=== PATIENT | female | born 1970 | race Hispanic/Latino ===

== ENCOUNTER 2017-07-22 18:45 | Emergency (ER) | payer BC ==
[2017-07-22 18:45] VITALS: BMI 33.0
[2017-07-22] MEDS ORDERED: Sodium Chloride 0.9% 1,000 ML IV SCH (19:15)
--- NOTE | 2017-07-22 19:47 | CT ---
EXAM: CT Cervical Spine Without Intravenous Contrast EXAM DATE/TIME: 07/22/2017 7:04 PM CLINICAL HISTORY: 46 years old, female; Signs and symptoms; Other: Rt facial numbness; Prior surgery; Surgery date: Post-operative (0-2 days); Surgery type: S/P c/spine pain relief today; Patient HX: Neck pain; Additional info: Right facial numbness TECHNIQUE: Axial computed tomography images of the cervical spine without intravenous contrast. All CT scans at this facility use one or more dose reduction techniques, viz.: automated exposure control; ma/kV adjustment per patient size (including targeted exams where dose is matched to indication; i.e. head); or iterative reconstruction technique. Coronal and sagittal reformatted images were created and reviewed. COMPARISON: No relevant prior studies available. FINDINGS: VERTEBRAE: No acute cervical spine fractures visualized. No significant vertebral subluxation seen on the sagittal reformatted images. No evidence of acute facet dislocation. DISCS/SPINAL CANAL/NEURAL FORAMINA: Mild multilevel degenerative disc disease, greatest at the C5-6 and C6-7 levels. Mild, multilevel facet joint degenerative changes. SOFT TISSUES: Small foci of air in the posterior spinal soft tissues, at the C2 through C4 levels on the right, located in the posterior paraspinal musculature. No focal soft tissue fluid collection or hematoma seen. LUNG APICES: No pneumothorax seen. IMPRESSION: - No acute fractures or other acute bony abnormality visualized. - Small foci of air in the posterior paraspinal musculature, at the C2 through C4 levels on the right, presumably iatrogenic. No focal soft tissue fluid collection or hematoma seen. - See above for remaining findings.
[2017-07-22 20:01] LABS: BASO % 0.6 % (0.0-2.0); EOS % 0.2 % (0.0-4.0); HEMOGLOBIN 12.7 g/dL (12.0-16.0); LYMPH # 0.8 K/uL (1.0-4.3); MEAN CELL VOLUME 91.5 fl (81.0-99.0); MEAN CORPUSCULAR HEMOGLOBIN 30.4 pg (27.0-31.0); MEAN CORPUSCULAR HGB CONC 33.2 g/dL (33.0-37.0); MEAN PLATELET VOLUME 9.6 fl (7.2-11.7); MONO # 0.8 K/uL (0.0-0.8); MONO % 10.4 % (0.0-10.0); NEUT # 6.4 K/uL (1.8-7.0); NEUT % 78.8 % (50.0-75.0); RBC 4.19 Mil/uL (3.80-5.20); RED CELL DISTRIBUTION WIDTH 13.6 % (11.5-14.5); WHITE BLOOD COUNT 8.1 K/uL (4.8-10.8)
[2017-07-22 20:11] LABS: ALB/GLOB RATIO 1.1 (1.0-2.1); ALBUMIN 4.2 g/dL (3.5-5.0); ALT/SGPT 32 U/L (9-52); AST/SGOT 20 U/L (14-36); BLOOD UREA NITROGEN 14 mg/dl (7-17); CALCIUM 9.7 mg/dL (8.4-10.2); GFR AFRICAN-AMERICAN > 60; GFR NON-AFRICAN AMERICAN > 60; HDL CHOLESTEROL 69 MG/DL (30-70)
[2017-07-22 20:22] LABS: LDL CHOLESTEROL 175 mg/dL (0-129)
[2017-07-22 20:24] LABS: INR 1.1 (0.9-1.2); PARTIAL THROMBOPLASTIN TIME 31.5 Seconds (25.6-37.1); PROTHROMBIN TIME 12.1 Seconds (9.8-13.1)
--- NOTE | 2017-07-22 23:05 | ED PDOC ---
HPI: Neurologic - General Time Seen by Provider: 07/22/17 19:03 Chief Complaint (Nursing): Weakness/Neurological Deficit Chief Complaint (Provider): LEFT facial numbness - History of Present Illness Allergies/Adverse Reactions: Allergies No Known Allergies Allergy (Verified 08/30/14 07:03) Home Medications: Ambulatory Orders Cyclobenzaprine [Cyclobenzaprine HCl] 10 mg PO TID PRN #15 tab 08/30/14 Naproxen [Naprosyn Tab] 500 mg PO BID PRN #20 tab 08/30/14 Cyclobenzaprine HCl [Flexeril] 10 mg PO Q8 #15 tab 12/27/14 Naproxen [Naprosyn] 500 mg PO BID #20 tab 12/27/14 Past Medical History Reviewed: Historical Data, Nursing Documentation, Vital Signs Vital Signs: Last Vital Signs Temp 98.8 F 07/22/17 18:54 Pulse 85 07/22/17 18:54 Resp 16 07/22/17 18:54 BP 155/82 H 07/22/17 18:54 Pulse Ox 99 07/22/17 18:54 - Medical History PMH: Denies: Chronic Kidney Disease Other PMH: neck pain - Family History Family History: States: Hypertension - Social History Current smoker - smoking cessation education provided: No - Home Medications Home Medications: Ambulatory Orders Medication Instructions Recorded Cyclobenzaprine [Cyclobenzaprine 10 mg PO TID PRN #15 tab 08/30/14 HCl] Naproxen [Naprosyn Tab] 500 mg PO BID PRN #20 tab 08/30/14 Cyclobenzaprine HCl [Flexeril] 10 mg PO Q8 #15 tab 12/27/14 Naproxen [Naprosyn] 500 mg PO BID #20 tab 12/27/14 - Allergies Allergies/Adverse Reactions: Allergies Allergy/AdvReac Type Severity Reaction Status Date / Time No Known Allergies Allergy Verified 08/30/14 07:03 Review of Systems ROS Statement: Except As Marked, All Systems Reviewed And Found Negative Physical Exam - Reviewed Nursing Documentation Reviewed: Yes Vital Signs Reviewed: Yes - Physical Exam Appears: Positive for: Non-toxic, No Acute Distress Head Exam: Positive for: ATRAUMATIC, NORMOCEPHALIC Skin: Positive for: Warm, Dry Eye Exam: Positive for: EOMI ENT: Negative for: Pharyngeal Erythema, Tonsillar Exudate Neck: Positive for: Painless ROM, Supple Cardiovascular/Chest: Positive for: Regular Rate, Rhythm. Negative for: Murmur Respiratory: Positive for: Normal Breath Sounds. Negative for: Wheezing Gastrointestinal/Abdominal: Positive for: Soft. Negative for: Tenderness Back: Positive for: Normal Inspection Extremity: Positive for: Normal ROM. Negative for: Deformity Neurologic/Psych: Positive for: Alert, Oriented, Motor/Sensory Deficits (LEFT facial mild numbness (subjective)), Facial Droop (subtle LEFT) - Laboratory Results Result Diagrams: 07/22/17 19:56 07/22/17 19:56 - ECG O2 Sat by Pulse Oximetry: 99 Medical Decision Making Medical Decision Making: Accession No. : [id number] Patient Name / ID : JANKI FERNANDEZ / [id number] Exam Date : 07/22/2017 19:10:48 ( Approved ) Study Comment : Sex / Age : F / 46Y Creator : Bernadette Hoff MD Dictator : Office Agent : Barrel Finisher : Bernadette Hoff MD Approver2 : Report Date : 07/22/2017 19:46:00 My Comment : [facility] Division of Radiology [address] [place] [address] Tel. no. Patient Name: REBECCA SHEARER Pt. Address: [address] [place] [address] Rec #: [id number] [place] [address]: Justice SMITH, Tequila Garcia Pt CELL Order Location: [facility] : 1970 Female Age: 46 Order #: [id number] Reason for exam: RIGHT facial numbness CT Scan CERVICAL SPINE W/O CONTRAST Exam Date: 07/22/17 This imaging exam was performed at [facility] EXAM: CT Cervical Spine Without Intravenous Contrast EXAM DATE/TIME: 07/22/2017 7:04 PM CLINICAL HISTORY: 46 years old, female; Signs and symptoms; Other: Rt facial numbness; Prior surgery; Surgery date: Post-operative (0-2 days); Surgery type: S/P c/spine pain relief today; Patient HX: Neck pain; Additional info: Right facial numbness TECHNIQUE: Axial computed tomography images of the cervical spine without intravenous contrast. All CT scans at this facility use one or more dose reduction techniques, viz.: automated exposure control; ma/kV adjustment per patient size (including targeted exams where dose is matched to indication; i.e. head); or iterative reconstruction technique. Coronal and sagittal reformatted images were created and reviewed. COMPARISON: No relevant prior studies available. FINDINGS: VERTEBRAE: No acute cervical spine fractures visualized. No significant vertebral subluxation seen on the sagittal reformatted images. No evidence of acute facet dislocation. DISCS/SPINAL CANAL/NEURAL FORAMINA: Mild multilevel degenerative disc disease, greatest at the C5-6 and C6-7 levels. Mild, multilevel facet joint degenerative changes. SOFT TISSUES: Small foci of air in the posterior spinal soft tissues, at the C2 through C4 levels on the right, located in the posterior paraspinal musculature. No focal soft tissue fluid collection or hematoma seen. LUNG APICES: No pneumothorax seen. IMPRESSION: - No acute fractures or other acute bony abnormality visualized. - Small foci of air in the posterior paraspinal musculature, at the C2 through C4 levels on the right, presumably iatrogenic. No focal soft tissue fluid collection or hematoma seen. - See above for remaining findings. Dictated By: Bernadette Hoff MD Dictated Date/Time: 07/22/171945 Signed By: Bernadette Hoff MD Date Signed: 1943 Transcribed By: RUBY Transcribe Date/Time : 07/22/171945 [id number] EXAM: CT Head Without Intravenous Contrast EXAM DATE/TIME: 07/22/2017 7:03 PM CLINICAL HISTORY: 46 years old, female; Signs and symptoms; Other: Numbness rt side of face; Additional info: Code stroke TECHNIQUE: Axial computed tomography images of the head/brain without intravenous contrast. All CT scans at this facility use one or more dose reduction techniques, viz.: automated exposure control; ma/kV adjustment per patient size (including targeted exams where dose is matched to indication; i.e. head); or iterative reconstruction technique. Coronal and sagittal reformatted images were created and reviewed. COMPARISON: No relevant prior studies available. FINDINGS: BRAIN: Small foci of hyperdensity in the right basal ganglia, with an appearance most suggestive of asymmetric calcification. No other significant abnormality identified. No acute hemorrhage seen within the brain. No acute extra-axial fluid collections visualized. No evidence of significant mass effect within the brain. Normal arce-white matter differentiation. No CT findings to suggest an acute, large territorial infarct, however, small or early acute infarcts may not be visible on CT. VENTRICLES: No evidence of significant hydrocephalus. BONES/JOINTS: No acute fractures or other acute bony abnormality noted. SOFT TISSUES: No acute abnormality of the visualized soft tissues is seen. SINUSES: Visualized paranasal sinuses appear clear. MASTOID AIR CELLS: Mastoid air cells appear clear. IMPRESSION: - No acute findings seen within the brain. - See above for remaining findings Thank you for allowing us to participate in the care of your patient. Dictated and Authenticated by: Bernadette Hoff MD 07/22/2017 7:28 PM Eastern Time ([place] & [place]) FRANCI Mora pt's pain management who reports that pt has h/o neuro symptoms following similar procedure. Will f/u after discharge. 8p On reevl pt impoved. FRANCI pt findings and plan of care. Pt requested CT results. Copies given directly to patient. Disposition - Clinical Impression Clinical Impression: Neuropathy - Disposition Disposition: Routine/Home Disposition Time: 22:00 Condition: IMPROVED Additional Instructions: FOLLOW UP WITH DR MORA IN HIS [place] OFFICE TOMORROW TAKE MOTRIN OR ADVIL NEEDED FOR PAIN OR INFLAMMATION Instructions: Peripheral Neuropathy
[2017-07-22 23:30] VITALS: BP 113/59; PULSE 79; RESP 18; TEMP 98.7
[2017-07-22 23:38] VITALS: O2SAT 99
--- NOTE | 2017-07-23 08:41 | CT ---
PROCEDURE: CT HEAD WITHOUT CONTRAST. HISTORY: code stroke COMPARISON: None available. TECHNIQUE: Axial computed tomography images were obtained through the head/brain without intravenous contrast. Radiation dose: Total exam DLP = 778.2 mGy-cm. This CT exam was performed using one or more of the following dose reduction techniques: Automated exposure control, adjustment of the mA and/or kV according to patient size, and/or use of iterative reconstruction technique. FINDINGS: HEMORRHAGE: No intracranial hemorrhage. BRAIN: No mass effect or edema. No atrophy or chronic microvascular ischemic changes. VENTRICLES: Unremarkable. No hydrocephalus. CALVARIUM: Unremarkable. PARANASAL SINUSES: Unremarkable as visualized. No significant inflammatory changes. MASTOID AIR CELLS: Unremarkable as visualized. No inflammatory changes. OTHER FINDINGS: None. IMPRESSION: No acute intracranial pathology.
--- NOTE | 2017-07-23 09:09 | RAD ---
HISTORY: Code Stroke COMPARISON: Chest radiograph dated 12/27/2014 FINDINGS: LUNGS: No active pulmonary disease. PLEURA: No significant pleural effusion identified, no pneumothorax apparent. CARDIOVASCULAR: Normal. OSSEOUS STRUCTURES: No significant abnormalities. VISUALIZED UPPER ABDOMEN: Normal. OTHER FINDINGS: None. IMPRESSION: No active disease.
--- NOTE | 2017-07-23 21:22 | CARD ---
APPROVED REPORT EKG Measurement Heart [id number] <Conclusion> Normal sinus rhythm Normal ECG
== END 2017-07-22 23:39 | disposition home or self-care (01) ==
LOC: H.ER 18:45
DX: G62.9 Polyneuropathy, unspecified (principal)
CPT/HCPCS: 70450; 71045; 72125; 80053; 80061; 81025; 82948; 83036; 84484; 85025; 85610; 85730; 86850; 86900; 93005; 96360; 96361; 99285; J7040